=== PATIENT | male | born 1985 | race Caucasian/White ===

== ENCOUNTER 2016-12-19 16:06 | Inpatient (IN) | payer SELFPAY ==
[~2016-12-19] VITALS: Ht 172.7 cm; Wt 64.4 kg
[2016-12-19] VITALS (8 sets, daily range): BP systolic 121–145; BP diastolic 76–95; PULSE 64–98; RESP 14–18; TEMP 97.2–97.8; O2SAT 98–100
[~2016-12-19 16:06] MED LIST: AMOX500T PO; OXYC1SOL5 PO
[2016-12-19 17:00] LABS: AUTOMATED NEUTROPHIL # 11.7 TH/MM3 (1.8-7.7); BASOPHIL # 0.1 TH/MM3 (0-0.2); EOSINOPHIL % 0.2 % (0.0-4.0); HEMATOCRIT 41.1 % (39.0-51.0); LYMPH % 10.8 % (9.0-44.0); LYMPHOCYTE # 1.5 TH/MM3 (1.0-4.8); MEAN CELL VOLUME 79.6 FL (80.0-100.0); MEAN CORPUSCULAR HEMOGLOBIN 27.2 PG (27.0-34.0); MEAN CORPUSCULAR HGB CONC 34.1 % (32.0-36.0); MONO % 5.7 % (0.0-8.0); NEUT % 82.3 % (16.0-70.0); PLATELET COUNT 191 TH/MM3 (150-450); RED BLOOD COUNT 5.16 MIL/MM3 (4.50-5.90); WHITE BLOOD COUNT 14.2 TH/MM3 (4.0-11.0)
[2016-12-19 17:03] LABS: HEMO FLAGS AUTO DIFF
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
[2016-12-19] MEDS ORDERED: MORPHINE SULFATE 4 MG/ML INJ IV PUSH ONE ×2 (17:15→18:30)
[2016-12-19 17:18] LABS: ANION GAP 7 MEQ/L (5-15); BICARBONATE 27.9 MEQ/L (21.0-32.0); CHLORIDE 105 MEQ/L (98-107); GLOMERULAR FILTRATION RATE 148 ML/MIN (>89); POTASSIUM 3.7 MEQ/L (3.5-5.1); SODIUM (NA) 140 MEQ/L (136-145)
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
[2016-12-19 17:22] LABS: BLOOD UREA NITROGEN 10 MG/DL (7-18)
[2016-12-19 17:43] LABS: PLATELET ESTIMATE SMEAR NORMAL (NORMAL); PLATELET MORPHOLOGY NORMAL (NORMAL); SCAN/DIFF AUTO DIFF CONFIRMED
[2016-12-19] MEDS ORDERED: SODIUM CHLOR 0.9% 1000 ML INJ 1,000 ML IV SCH (18:00)
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
[2016-12-19] MEDS ORDERED: ONDANSETRON HCL 4 MG/2 ML VIAL IVP PRN (20:00)
[2016-12-19] MEDS ORDERED: NALOXONE HCL 0.4 MG/ML AMP IV PRN (20:00)
[2016-12-19] MEDS ORDERED: SODIUM CHLORIDE 0.9% FLUSH 10 ML FLUSH IV FLUSH PRN (20:00)
[2016-12-19] MEDS: SODIUM CHLOR 0.9% 1000 ML INJ 1,000 ML IV SCH (20:11)
[2016-12-19] MEDS: SODIUM CHLORIDE 0.9% FLUSH 10 ML FLUSH IV FLUSH SCH (21:00)
[2016-12-19] MEDS: MORPHINE SULFATE 4 MG/ML INJ IV PUSH PRN (22:21)
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
[2016-12-19] MEDS ORDERED: diphenhydrAMINE HCL 50 MG/ML VIAL IV PUSH ONE (23:00)
[2016-12-20 00:06] LABS: AMPHETAMINE, URINE POS (NEG); BARBITURATES, URINE NEG (NEG); COCAINE, URINE NEG (NEG)
[2016-12-20] MEDS: SODIUM CHLOR 0.9% 1000 ML INJ 1,000 ML IV SCH ×3 (00:08→19:39)
[2016-12-20] MEDS: MORPHINE SULFATE 4 MG/ML INJ IV PUSH PRN ×6 (02:08→19:40)
[2016-12-20] MEDS ORDERED: POVIDONE IODINE 5% (ANTISEPSIS KIT) 4 APPLICATIONS EACH NARE PRN (02:15)
[2016-12-20] MEDS ORDERED: CHLORHEXIDINE GLUCONATE 2 % 1 PACK (2 CLOTHS) TOPICAL PRN (02:15)
[2016-12-20] MEDS ORDERED: LACTATED RINGER'S 1000 ML IV PRN (02:15)
[2016-12-20] MEDS ORDERED: INSULIN HUMAN REGULAR 1,000 UNITS/10 ML VIAL SQ PRN (02:15)
[2016-12-20] MEDS ORDERED: SODIUM CHLORID 0.9% 500 ML IV PRN (02:15)
[2016-12-20 04:20] VITALS: BP 119/85; PULSE 65; RESP 16; TEMP 97; O2SAT 98
[2016-12-20 08:00] VITALS: BP 125/77; PULSE 65; RESP 18; TEMP 96.7; O2SAT 98
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
[2016-12-20] MEDS: SODIUM CHLORIDE 0.9% FLUSH 10 ML FLUSH IV FLUSH SCH ×2 (08:57→19:40)
[2016-12-20] MEDS ORDERED: PNEUMOCOCCAL POLYVALENT INJ 25 MCG/0.5 ML SYR IM ONE (09:00)
[2016-12-20 12:00] VITALS: BP 124/80; PULSE 60; RESP 18; TEMP 97.2; O2SAT 98
[2016-12-20] MEDS ORDERED: ONDANSETRON HCL 4 MG/2 ML VIAL IV PUSH ONE (12:00)
[2016-12-20] MEDS ORDERED: PROPOFOL 200 MG/20 ML AMP IV ONE (12:00)
[2016-12-20] MEDS ORDERED: LIDOCAINE 1%/EPINEPHrine 1:100,000 SOLN 50 ML VIAL ONE (15:00)
[2016-12-20] MEDS ORDERED: LIDOCAINE 2%/EPINEPHrine 1:100,000 30ML MDV ONE (15:01)
[2016-12-20 15:33] VITALS: BP 113/54; PULSE 65; RESP 16; TEMP 95.8; O2SAT 97
[2016-12-20] MEDS ORDERED: ceFAZolin INJ 1,000 MG VIAL ONE (16:23)
[2016-12-20] MEDS ORDERED: DEXAMETHASONE SOD PHOS 4 MG/ML VIAL ONE (16:23)
[2016-12-20] MEDS ORDERED: MIDAZOLAM HCL 2 MG/2 ML VIAL ONE (16:29)
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
--- NOTE | 2016-12-20 18:08 | HHI.PR ---
Subjective Remarks pre op Left mandible fx post op same Procedure ORIF mandible fracture Surgeon Sariah Felton Fluids 1000 cc crystalloid Complication none EBL 25cc Anesthesia GA via NETT To RR with VS stable Objective Vital Signs Date Time Temp Pulse Resp B/P Pulse Ox O2 Delivery O2 Flow Rate FiO2 12/20/16 15:33 95.8 65 16 113/54 97 12/20/16 08:00 96.7 65 18 125/77 98 12/20/16 04:20 97.0 65 16 119/85 98 12/19/16 23:57 66 12/19/16 23:47 97.2 67 16 137/86 100 12/19/16 23:41 69 14 121/76 100 12/19/16 22:22 68 14 134/86 98 Room Air 12/19/16 19:20 64 18 129/87 100 Room Air 12/19/16 18:29 71 18 145/95 100 Room Air 12/19/16 18:28 14 I/O 12/19/16 12/19/16 12/19/16 12/20/16 12/20/16 12/20/16 07:00 15:00 23:00 07:00 15:00 23:00 Intake Total 912 ml 988 ml Output Total 375 ml 1175 ml 600 ml Balance 537 ml -187 ml -600 ml Intake Oral 0 ml IV Total 912 ml 988 ml Output Urine Total 375 ml 1175 ml 600 ml # Bowel Movements 0 Result Diagram: 12/19/16 1642 12/19/16 1642 Spencer Rolle DDS Dec 20, 2016 18:08
[2016-12-20] MEDS ORDERED: *MEPERIDINE 25 MG INJ VIAL PERIprocedural Use ONLY ONE (18:24)
[2016-12-20] MEDS ORDERED: methylPREDNISolone SOD SUCC 125 MG/2 ML VIAL ONE (18:26)
[2016-12-20] MEDS ORDERED: fentaNYL CITRATE 250 MCG/5 ML AMP ONE (18:30)
[2016-12-20] MEDS ORDERED: *HYDROmorphone PF 1 MG VIAL PERIprocedural Use ONLY ONE (18:35)
[2016-12-20] MEDS ORDERED: DO NOT ADM ANY ANTICOAGULANT DRUGS PRN (19:15)
[2016-12-20 19:38] VITALS: PULSE 80
[2016-12-20 20:27] VITALS: BP 144/88; PULSE 84; RESP 16; TEMP 96.2; O2SAT 100
[2016-12-20] MEDS: ACETAMINOPHEN 325MG/HYDROcodone 7.5MG/15ML UDC PO PRN (21:10)
[2016-12-20] MEDS: ceFAZolin 1,000 MG/NS 100 ML IV SCH ×2 (21:11)
[2016-12-20] MEDS: methylPREDNISolone SOD SUCC 125 MG/2 ML VIAL IV SCH (23:57)
[2016-12-21] VITALS (7 sets, daily range): BP systolic 109–131; BP diastolic 61–79; PULSE 70–85; RESP 16–22; TEMP 95.3–97.7; O2SAT 96–99
[2016-12-21] MEDS: MORPHINE SULFATE 4 MG/ML INJ IV PUSH PRN ×6 (02:27→23:27)
[2016-12-21] MEDS: ACETAMINOPHEN 325MG/HYDROcodone 7.5MG/15ML UDC PO PRN ×4 (04:58→22:10)
[2016-12-21] MEDS: methylPREDNISolone SOD SUCC 125 MG/2 ML VIAL IV SCH ×2 (04:58→11:20)
[2016-12-21] MEDS: ceFAZolin 1,000 MG/NS 100 ML IV SCH ×6 (04:58→22:10)
[2016-12-21] MEDS: SODIUM CHLORIDE 0.9% FLUSH 10 ML FLUSH IV FLUSH SCH ×2 (09:38→19:57)
[2016-12-21] MEDS: SODIUM CHLOR 0.9% 1000 ML INJ 1,000 ML IV SCH ×2 (11:47→19:57)
[2016-12-21] MEDS ORDERED: methylPREDNISolone ACETATE 80 MG/ML VIAL IM ONE (13:00)
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
[2016-12-22 00:10] VITALS: BP 112/67; PULSE 84; RESP 20; TEMP 96; O2SAT 96
[2016-12-22] MEDS: ACETAMINOPHEN 325MG/HYDROcodone 7.5MG/15ML UDC PO PRN ×5 (03:00→22:40)
[2016-12-22 04:48] VITALS: BP 106/63; PULSE 57; RESP 18; TEMP 95.4; O2SAT 97
[2016-12-22] MEDS: MORPHINE SULFATE 4 MG/ML INJ IV PUSH PRN ×4 (05:23→20:28)
[2016-12-22] MEDS: ceFAZolin 1,000 MG/NS 100 ML IV SCH ×4 (05:24→14:09)
[2016-12-22 07:32] LABS: AUTOMATED NEUTROPHIL # 20.2 TH/MM3 (1.8-7.7); BASOPHIL # 0.1 TH/MM3 (0-0.2); BASOPHIL % 0.3 % (0.0-2.0); HEMATOCRIT 41.1 % (39.0-51.0); HEMO FLAGS DIFF FINAL; LYMPH % 9.7 % (9.0-44.0); LYMPHOCYTE # 2.3 TH/MM3 (1.0-4.8); MEAN CELL VOLUME 80.8 FL (80.0-100.0); MEAN CORPUSCULAR HEMOGLOBIN 26.7 PG (27.0-34.0); MONO % 5.1 % (0.0-8.0); NEUT % 84.9 % (16.0-70.0); PLATELET COUNT 189 TH/MM3 (150-450); RED BLOOD COUNT 5.08 MIL/MM3 (4.50-5.90); RED CELL DISTRIBUTION WIDTH 14.3 % (11.6-17.2); WHITE BLOOD COUNT 23.8 TH/MM3 (4.0-11.0)
[2016-12-22] MEDS: SODIUM CHLOR 0.9% 1000 ML INJ 1,000 ML IV SCH ×3 (07:47→19:36)
[2016-12-22 07:54] LABS: ALKALINE PHOSPHATASE 67 U/L (45-117); ALT (GPT) 41 U/L (12-78); ANION GAP 7 MEQ/L (5-15); AST (GOT) 15 U/L (15-37); BICARBONATE 30.3 MEQ/L (21.0-32.0); BLOOD UREA NITROGEN 7 MG/DL (7-18); CHLORIDE 101 MEQ/L (98-107); GLOMERULAR FILTRATION RATE 133 ML/MIN (>89); POTASSIUM 4.2 MEQ/L (3.5-5.1); SODIUM (NA) 138 MEQ/L (136-145); TOTAL BILIRUBIN ADULT 0.2 MG/DL (0.2-1.0)
[2016-12-22 08:00] VITALS: BP 108/66; PULSE 74; RESP 16; TEMP 96.7; O2SAT 96
[2016-12-22] MEDS: SODIUM CHLORIDE 0.9% FLUSH 10 ML FLUSH IV FLUSH SCH ×2 (09:38→20:28)
[2016-12-22 11:12] LABS: BACTERIA, URINE RARE /hpf; BLOOD, URINE NEG (NEG); COMMENT (UR) CULT NOT INDICATED; CULTURE IF INDICATED CULT NOT INDICATED; GLUCOSE,URINE NEG (NEG); KETONE, URINE NEG (NEG); NITRITE,URINE NEG (NEG); PH, URINE 7.5 (5.0-8.5); SQUAMOUS EPITHELIAL CELL URINE <1 /hpf (0-5); URINE COLOR LIGHT-YELLOW (YELLW/STRAW)
[2016-12-22 12:00] VITALS: BP 112/64; PULSE 64; RESP 16; TEMP 96.9; O2SAT 97
[2016-12-22 16:00] VITALS: BP 115/69; PULSE 56; RESP 16; TEMP 96.8; O2SAT 96
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
[2016-12-22] MEDS ORDERED: MORPHINE SULFATE 4 MG/ML INJ IV PUSH PRN (18:15)
[2016-12-22] MEDS ORDERED: MAGNESIUM HYDROXIDE SUSP 30 ML CUP PO PRN (18:15)
[2016-12-22] MEDS ORDERED: MAGNESIUM HYDROXIDE SUSP 30 ML CUP PO ONE (18:15)
[2016-12-22] MEDS: DOCUSATE SODIUM 50 MG/SENNA 8.6 MG TAB PO SCH (18:15)
[2016-12-22 19:20] VITALS: BP 119/77; PULSE 70; RESP 19; TEMP 95.4; O2SAT 100
[2016-12-22] MEDS: CLINDAMYCIN INJ 600 MG in SODIUM CHLORIDE 0.9% INJ 100 ML IV SCH (20:22)
[2016-12-23 00:12] VITALS: BP 131/72; PULSE 71; RESP 19; TEMP 96.4; O2SAT 99
[2016-12-23] MEDS: MORPHINE SULFATE 4 MG/ML INJ IV PUSH PRN ×2 (00:26→03:45)
[2016-12-23] MEDS: ACETAMINOPHEN 325MG/HYDROcodone 7.5MG/15ML UDC PO PRN ×3 (02:29→11:21)
[2016-12-23 03:21] VITALS: BP 121/73; PULSE 71; RESP 18; TEMP 97.2; O2SAT 99
[2016-12-23] MEDS: CLINDAMYCIN INJ 600 MG in SODIUM CHLORIDE 0.9% INJ 100 ML IV SCH ×2 (03:44→11:18)
[2016-12-23 08:00] VITALS: BP 121/67; PULSE 70; RESP 17; TEMP 96; O2SAT 98
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
[2016-12-23] MEDS: DOCUSATE SODIUM 50 MG/SENNA 8.6 MG TAB PO SCH (11:20)
[2016-12-23] MEDS: SODIUM CHLORIDE 0.9% FLUSH 10 ML FLUSH IV FLUSH SCH (11:20)
[2016-12-23] MEDS ORDERED: HYDR-2376 PO (12:07)
[2016-12-23] MEDS ORDERED: CLIN1CAP6 PO (12:07)
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
== END 2016-12-23 14:37 | disposition home or self-care (01) | DRG 132 ==
LOC: NEPC 16:06 → NEDA 19:39 → OBSVTOIN 19:39 → INTOOBSV 19:39 → N06B 23:56
PROVIDERS: ADMIT Hospitalist; ATTEND Hospitalist
PROC: 0NSV04Z Reposition Left Mandible with Internal Fixation Device, Open Approach (ICD-10-PCS; principal; 2016-12-20 16:40)
DX: S02.652A Fracture of angle of left mandible, initial encounter for closed fracture (principal); D72.823 Leukemoid reaction; K59.00 Constipation, unspecified; J32.9 Chronic sinusitis, unspecified; F17.210 Nicotine dependence, cigarettes, uncomplicated; Y04.0XXA Assault by unarmed brawl or fight, initial encounter
CPT/HCPCS: 70450; 70486; 72125; 80048; 80053; 80307; 81001; 85025; 96361; 96374; 96376; C1713; J0690; J1040; J1100; J1170; J1200; J2175; J2250; J2270; J2405; J2930; J3010; J7030

== ENCOUNTER 2017-01-03 03:42 | Inpatient (IN) | payer SELFPAY ==
[2017-01-03] VITALS (7 sets, daily range): BP systolic 98–140; BP diastolic 62–89; PULSE 65–98; RESP 14–18; TEMP 96.6–98.2; O2SAT 97–100
[~2017-01-03] VITALS: Ht 172.7 cm; Wt 64.9 kg
[~2017-01-03 03:42] MED LIST changes: -AMOX500T PO; +CLIN1CAP6 PO; +HYDR-2376 PO; -OXYC1SOL5 PO
[2017-01-03] MEDS ORDERED: AMPICILLIN-SULBACTAM INJ 3 GM in SODIUM CHLORIDE 0.9% INJ 100 ML IV ONE (04:15)
[2017-01-03] MEDS ORDERED: MORPHINE SULFATE 4 MG/ML INJ IV PUSH ONE (04:15)
[2017-01-03] MEDS ORDERED: ONDANSETRON HCL 4 MG/2 ML VIAL IV PUSH ONE (04:15)
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
[2017-01-03] MEDS: SODIUM CHLOR 0.9% 1000 ML INJ 1,000 ML IV SCH ×3 (04:22→21:32)
[2017-01-03 04:35] LABS: APTT (PATIENT) 32.3 SEC (24.3-30.1)
[2017-01-03 04:42] LABS: BICARBONATE 28.6 MEQ/L (21.0-32.0)
[2017-01-03 04:57] LABS: AUTOMATED NEUTROPHIL # 14.4 TH/MM3 (1.8-7.7); BASOPHIL # 0.1 TH/MM3 (0-0.2); BASOPHIL % 0.3 % (0.0-2.0); EOSINOPHIL % 0.1 % (0.0-4.0); HEMATOCRIT 42.5 % (39.0-51.0); HEMO FLAGS DIFF FINAL; LYMPH % 10.1 % (9.0-44.0); LYMPHOCYTE # 1.7 TH/MM3 (1.0-4.8); MEAN CELL VOLUME 81.2 FL (80.0-100.0); MEAN CORPUSCULAR HEMOGLOBIN 26.4 PG (27.0-34.0); MEAN CORPUSCULAR HGB CONC 32.5 % (32.0-36.0); MONO % 5.3 % (0.0-8.0); NEUT % 84.2 % (16.0-70.0); PLATELET COUNT 248 TH/MM3 (150-450); RED BLOOD COUNT 5.23 MIL/MM3 (4.50-5.90); RED CELL DISTRIBUTION WIDTH 14.1 % (11.6-17.2); WHITE BLOOD COUNT 17.1 TH/MM3 (4.0-11.0)
[2017-01-03] MEDS ORDERED: IOHEXOL 350 MG/ML 10 ML VIAL (for RAD DIAG) IV ONE (05:10)
--- NOTE | 2017-01-03 06:02 | RADRPT ---
EXAM DATE/TIME: 01/03/2017 05:07 [facility] COMPARISON: No previous studies available for comparison. INDICATIONS : Left sided jaw pain and swelling. Post op mandible fracture. IV CONTRAST: 66 cc Omnipaque 350 (iohexol) IV RADIATION DOSE: 12.99 CTDIvol (mGy) MEDICAL HISTORY : Left mandible fracture SURGICAL HISTORY : ENCOUNTER: Initial ACUITY: 1 week PAIN SCALE: 9/10 LOCATION: Left mandible TECHNIQUE: Volumetric scanning of the neck was performed. Using automated exposure control and adjustment of th e mA and/or kV according to patient size, radiation dose was kept as low as reasonably achievable to obtain optimal diagnostic quality images. FINDINGS: An orthopedic plate with anchoring screws is seen involving the left aspect of the mandible. Alignmen t of the fracture is seen. Fracture is comminuted in nature with some small intervening bone fragment s. There is overlying soft tissue swelling observed. No fluid collection. 2 enlarged submandibular ly mph nodes on the left noted. These measure 2.5 x 0.8 cm and 2.0 x 1.1 cm. Major vascular structures a re normal. Thyroid gland is unremarkable. CONCLUSION: 1. Left mandibular fracture with orthopedic plate and alignment. 2. Soft tissue swelling and mild lymphadenopathy involving the left cheek. No hematoma or abscess. Troy Gilmore Jr., MD on January 03, 2017 at 5:55 Board Certified Radiologist. This report was verified electronically.
[2017-01-03] MEDS ORDERED: NALOXONE HCL 0.4 MG/ML AMP IV PRN (07:00)
[2017-01-03] MEDS ORDERED: SODIUM CHLORIDE 0.9% FLUSH 10 ML FLUSH IV FLUSH PRN (07:00)
[2017-01-03] MEDS: CLINDAMYCIN INJ 900 MG in SODIUM CHLORIDE 0.9% INJ 100 ML IV SCH ×3 (07:45→21:32)
[2017-01-03] MEDS: SODIUM CHLORIDE 0.9% FLUSH 10 ML FLUSH IV FLUSH SCH ×2 (07:45→21:33)
--- NOTE | 2017-01-03 07:51 | HHI.HP ---
[facility] Primary Care Physician Admission Diagnosis left facial cellulitis Diagnoses: Chief Complaint: Left facial pain and edema Travel History International Travel<30 Days: No Contact w/Intl Traveler <30 Da: No Traveled to Known Affected Are: No History of Present Illness This is a pleasant 31 y/o male who came to ER with swelling and pain on his left facial area, left sided neck and throat admitted to this facility on December 19 and Discharged on December 23 after surgery, The patient had ORIF left mandible on December 20, 2016. Patient was given prescription for clindamycin and hydrocodone. Patient states that he could not afford the antibiotic and did not fill the prescription as directed. Patient states he has increasing pain and swelling left-sided jaw, left side of throat and left-sided neck for the past several days. Patient denies any fever chills. Patient states that he has trouble swallowing. Patient still able to drink fluids. On a scale of 1-10 the pain is a 9. seen in Emergency room, recommended to get activity not to stay in bed all the time to avoid complications. Past Family Social History Past Medical History Status post Left angle mandibular fracture and ORIF Past Surgical History Exploratory laparotomy to remove foreign object ORIF or Left mandibular Angle Fracture. Reported Medications Reported Meds & Active Scripts Active Hydrocodone-Acetaminophen 7.5-300 Mg Tab 1 Tab PO Q4H PRN Allergies: Coded Allergies: No Known Allergies (Verified , 12/19/16) Active Ordered Medications Current Medications Medications (Trade) Dose Ordered Sig/Callie Route Start Time Stop Time Status Last Admin (NS 1000 ml Inj) 1,000 ml @ 125 mls/hr Q8H IV 01/03/17 04:15 01/03/17 04:22 (NS Flush) 2 ml UNSCH PRN IV FLUSH 01/03/17 07:00 (NS Flush) 2 ml BID IV FLUSH 01/03/17 09:00 Naloxone HCl 0.4 mg 0.4 mg UNSCH PRN IV 01/03/17 07:00 (Cleocin Inj/NS Inj) 106 ml @ 212 mls/hr Q6H IV 01/03/17 08:00 (Morphine Inj) 2 mg Q3H PRN IV PUSH 01/03/17 07:00 Family History Mother with Breast cancer Social History Alcohol abuse occasional tobacco dependence one pack per day, Physical Exam Vital Signs Vital Signs Date Time Temp Pulse Resp B/P Pulse Ox O2 Delivery O2 Flow Rate FiO2 01/03/17 07:20 98.0 70 15 116/62 97 Room Air 01/03/17 04:23 91 18 98 01/03/17 03:44 98.2 98 14 140/89 97 Room Air Physical Exam GENERAL:No acute distress SKIN: Focused skin assessment warm/dry. HEAD: Normocephalic. EYES: No scleral icterus. No injection or drainage. NECK: Supple, trachea midline. No JVD or lymphadenopathy. CARDIOVASCULAR: Regular rate and rhythm without murmurs, gallops, or rubs. RESPIRATORY: Breath sounds equal bilaterally. No accessory muscle use. GASTROINTESTINAL: Abdomen soft, non-tender, nondistended. MUSCULOSKELETAL: No cyanosis, or edema. BACK: Nontender without obvious deformity. No CVA tenderness. Patient has soft tissue swelling tenderness left mandible, left somebody will area, left upper back area. Redness noted overlying the skin to the area. Examination of the throat shows soft tissue swelling on the left peritonsillar area. Laboratory Laboratory Tests Test 01/03/17 04:05 White Blood Count 17.1 Red Blood Count 5.23 Hemoglobin 13.8 Hematocrit 42.5 Mean Corpuscular Volume 81.2 Mean Corpuscular Hemoglobin 26.4 Mean Corpuscular Hemoglobin 32.5 Concent Red Cell Distribution Width 14.1 Platelet Count 248 Mean Platelet Volume 8.4 Neutrophils (%) (Auto) 84.2 Lymphocytes (%) (Auto) 10.1 Monocytes (%) (Auto) 5.3 Eosinophils (%) (Auto) 0.1 Basophils (%) (Auto) 0.3 Neutrophils # (Auto) 14.4 Lymphocytes # (Auto) 1.7 Monocytes # (Auto) 0.9 Eosinophils # (Auto) 0.0 Basophils # (Auto) 0.1 CBC Comment DIFF FINAL Differential Comment Prothrombin Time 11.0 Prothromb Time International 1.0 Ratio Activated Partial 32.3 Thromboplast Time Sodium Level 139 Potassium Level 4.0 Chloride Level 102 Carbon Dioxide Level 28.6 Anion Gap 8 Blood Urea Nitrogen 16 Creatinine 0.81 Estimat Glomerular Filtration 110 Rate Random Glucose 164 Calcium Level 9.0 Date/Time Procedure Status Source Growth 01/03/17 04:05 Aerobic Blood Culture Received Blood Peripheral Pending 01/03/17 04:05 Anaerobic Blood Culture Received Blood Peripheral Pending Result Diagram: 01/03/17 0405 01/03/17 0405 Imaging Last Impressions Neck CT 01/03/17 0000 Signed Impressions: Service Date/Time: , January 03, 2017 05:07 - CONCLUSION: 1. Left mandibular fracture with orthopedic plate and alignment. 2. Soft tissue swelling and mild lymphadenopathy involving the left cheek. No hematoma or abscess. Troy Gilmore Jr., MD Assessment and Plan Assessment and Plan 1. Facial Cellulitis with Leukocytosis WBC 17.1, started on Unasyn in ER and then Clindamycin, consulted Orofacial surgeon , continue pain medicine and antibiotics. follow blood cultures 2. Mandibular Fracture status post ORIF. 3. Tobacco dependence strongly recommended to stop smoking. DVT prophylaxis with SCDs. Code Status Full Code Discussed Condition With Patient. Physician Certification 2 Midnight Certification Type: Admission for Inpatient Services Order for Inpatient Services The services are ordered in accordance with Medicare regulations or non- Medicare payer requirements, as applicable. In the case of services not specified as inpatient-only, they are appropriately provided as inpatient services in accordance with the 2-midnight benchmark. Estimated LOS (days): 3 days is the estimated time the patient will need to remain in the hospital, assuming treatment plan goals are met and no additional complications. Post-Hospital Plan: Home Allan Ledezma MD January 03, 2017 07:51
[2017-01-03] MEDS: MORPHINE SULFATE 4 MG/ML INJ IV PUSH PRN ×3 (12:19→21:33)
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
[2017-01-04] VITALS (7 sets, daily range): BP systolic 100–128; BP diastolic 58–88; PULSE 58–95; RESP 16–20; TEMP 96–98.7; O2SAT 95–100
[2017-01-04] MEDS: MORPHINE SULFATE 4 MG/ML INJ IV PUSH PRN ×5 (01:24→20:10)
[2017-01-04] MEDS: CLINDAMYCIN INJ 900 MG in SODIUM CHLORIDE 0.9% INJ 100 ML IV SCH ×4 (02:10→20:06)
[2017-01-04] MEDS: SODIUM CHLOR 0.9% 1000 ML INJ 1,000 ML IV SCH ×2 (02:10→12:15)
[2017-01-04] MEDS: SODIUM CHLORIDE 0.9% FLUSH 10 ML FLUSH IV FLUSH SCH ×2 (08:30→21:00)
--- NOTE | 2017-01-04 09:37 | HHI.PR ---
Subjective Remarks This is a pleasant 31 y/o male who came to ER with swelling and pain on his left facial area, left sided neck and throat admitted to this facility on December 19 and Discharged on December 23 after surgery, The patient had ORIF left mandible on December 20, 2016. Patient was given prescription for clindamycin and hydrocodone. Patient states that he could not afford the antibiotic and did not fill the prescription as directed. Patient states he has increasing pain and swelling left-sided jaw, left side of throat and left-sided neck for the past several days. Patient denies any fever chills. Patient states that he has trouble swallowing. Patient still able to drink fluids. On a scale of 1-10 the pain is a 9. seen in Emergency room, recommended to get activity not to stay in bed all the time to avoid complications. 01/04: Consulted by Orofacial Surgeon Doctor Stan Felton and recommended to continue antibiotics, steroids, warm compresses good oral hygiene and being compliant with medicines no smoking. No nausea, vomit or diarrhea, improving fast Objective Vital Signs Date Time Temp Pulse Resp B/P Pulse Ox O2 Delivery O2 Flow Rate FiO2 01/04/17 04:05 97.0 70 17 100/60 99 01/04/17 00:05 97.1 69 17 105/58 99 01/03/17 20:05 97.6 68 17 98/67 99 01/03/17 19:13 Room Air 01/03/17 16:00 97.8 65 16 104/62 100 01/03/17 12:00 97.4 72 16 112/63 98 I/O 01/03/17 01/03/17 01/03/17 01/04/17 01/04/17 01/04/17 07:00 15:00 23:00 07:00 15:00 23:00 Intake Total 1080 ml 1912 ml 1496 ml Output Total 800 ml 1400 ml 2450 ml Balance 280 ml 512 ml -954 ml Intake Oral 1080 ml 480 ml 480 ml IV Total 1432 ml 1016 ml Output Urine Total 800 ml 1400 ml 2450 ml # Voids 1 # Bowel Movements 0 0 0 Result Diagram: 01/03/17 0405 01/03/17 0405 Imaging Last Impressions Neck CT 01/03/17 0000 Signed Impressions: Service Date/Time: December 05:07 - CONCLUSION: 1. Left mandibular fracture with orthopedic plate and alignment. 2. Soft tissue swelling and mild lymphadenopathy involving the left cheek. No hematoma or abscess. Troy Gilmore Jr., MD Procedures No procedures performed. Other Results Laboratory Tests Test 01/03/17 04:05 White Blood Count 17.1 TH/MM3 Red Blood Count 5.23 MIL/MM3 Hemoglobin 13.8 GM/DL Hematocrit 42.5 % Mean Corpuscular Volume 81.2 FL Mean Corpuscular Hemoglobin 26.4 PG Mean Corpuscular Hemoglobin 32.5 % Concent Red Cell Distribution Width 14.1 % Platelet Count 248 TH/MM3 Mean Platelet Volume 8.4 FL Neutrophils (%) (Auto) 84.2 % Lymphocytes (%) (Auto) 10.1 % Monocytes (%) (Auto) 5.3 % Eosinophils (%) (Auto) 0.1 % Basophils (%) (Auto) 0.3 % Neutrophils # (Auto) 14.4 TH/MM3 Lymphocytes # (Auto) 1.7 TH/MM3 Monocytes # (Auto) 0.9 TH/MM3 Eosinophils # (Auto) 0.0 TH/MM3 Basophils # (Auto) 0.1 TH/MM3 CBC Comment DIFF FINAL Differential Comment Prothrombin Time 11.0 SEC Prothromb Time International 1.0 RATIO Ratio Activated Partial 32.3 SEC Thromboplast Time Sodium Level 139 MEQ/L Potassium Level 4.0 MEQ/L Chloride Level 102 MEQ/L Carbon Dioxide Level 28.6 MEQ/L Anion Gap 8 MEQ/L Blood Urea Nitrogen 16 MG/DL Creatinine 0.81 MG/DL Estimat Glomerular Filtration 110 ML/MIN Rate Random Glucose 164 MG/DL Calcium Level 9.0 MG/DL Objective Remarks GENERAL:No acute distress SKIN: Focused skin assessment warm/dry. HEAD: Normocephalic. EYES: No scleral icterus. No injection or drainage. NECK: Supple, trachea midline. No JVD or lymphadenopathy. CARDIOVASCULAR: Regular rate and rhythm without murmurs, gallops, or rubs. RESPIRATORY: Breath sounds equal bilaterally. No accessory muscle use. GASTROINTESTINAL: Abdomen soft, non-tender, nondistended. MUSCULOSKELETAL: No cyanosis, or edema. BACK: Nontender without obvious deformity. No CVA tenderness. Patient has soft tissue swelling tenderness left mandible,erythema and edema improving fast from yesterday 60% less than yesterday. Medications and IVs Current Medications Medications (Trade) Dose Ordered Sig/Callie Route Start Time Stop Time Status Last Admin (NS 1000 ml Inj) 1,000 ml @ 125 mls/hr Q8H IV 01/03/17 04:15 01/04/17 02:10 (NS Flush) 2 ml UNSCH PRN IV FLUSH 01/03/17 07:00 (NS Flush) 2 ml BID IV FLUSH 01/03/17 09:00 01/04/17 08:30 Naloxone HCl 0.4 mg 0.4 mg UNSCH PRN IV 01/03/17 07:00 (Cleocin Inj/NS Inj) 106 ml @ 212 mls/hr Q6H IV 01/03/17 08:00 01/04/17 08:30 (Morphine Inj) 2 mg Q3H PRN IV PUSH 01/03/17 07:00 01/04/17 05:24 A/P Problem List: (1) Fracture of left mandibular angle ICD Code: S02.652A (2) Facial cellulitis ICD Code: L03.211 Assessment and Plan 1. Facial Cellulitis with Leukocytosis WBC 17.1, started on Unasyn in ER and then Clindamycin, consulted Orofacial surgeon , continue pain medicine and antibiotics. follow blood cultures 2. Mandibular Fracture status post ORIF on last admission. 3. Tobacco dependence strongly recommended to stop smoking. DVT prophylaxis with SCDs. Code Status Full Code Discussed Condition With Patient. Discharge Planning Expected in one to two days. Allan Ledezma MD January 04, 2017 09:37
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
[2017-01-05 00:10] VITALS: BP 120/75; PULSE 73; RESP 17; TEMP 97.1; O2SAT 98
[2017-01-05] MEDS: CLINDAMYCIN INJ 900 MG in SODIUM CHLORIDE 0.9% INJ 100 ML IV SCH ×4 (02:00→19:52)
[2017-01-05] MEDS: MORPHINE SULFATE 4 MG/ML INJ IV PUSH PRN ×6 (03:10→16:37)
[2017-01-05 04:10] VITALS: BP 116/77; PULSE 74; RESP 17; TEMP 97.4; O2SAT 98
[2017-01-05 08:00] VITALS: BP 114/69; PULSE 60; RESP 18; TEMP 95.9; O2SAT 100
[2017-01-05] MEDS: SODIUM CHLORIDE 0.9% FLUSH 10 ML FLUSH IV FLUSH SCH ×2 (10:39→19:50)
[2017-01-05 12:00] VITALS: BP 120/68; PULSE 72; RESP 19; TEMP 96.1; O2SAT 96
[2017-01-05] MEDS: SODIUM CHLOR 0.9% 1000 ML INJ 1,000 ML IV SCH (12:15)
[2017-01-05 16:00] VITALS: BP 113/80; PULSE 65; RESP 19; TEMP 96.1; O2SAT 100
--- NOTE | 2017-01-05 16:14 | HHI.PR ---
Subjective Remarks This is a pleasant 31 y/o male who came to ER with swelling and pain on his left facial area, left sided neck and throat admitted to this facility on December 19 and Discharged on December 23 after surgery, The patient had ORIF left mandible on December 20, 2016. Patient was given prescription for clindamycin and hydrocodone. Patient states that he could not afford the antibiotic and did not fill the prescription as directed. Patient states he has increasing pain and swelling left-sided jaw, left side of throat and left-sided neck for the past several days. Patient denies any fever chills. Patient states that he has trouble swallowing. Patient still able to drink fluids. On a scale of 1-10 the pain is a 9. seen in Emergency room, recommended to get activity not to stay in bed all the time to avoid complications. 01/05: Seen in his bedroom, improving condition, he will be discharged on Saturday01/07/17 and go to [facility], no Nausea, vomit or diarrhea, improving condition, encourage activity, IV medicines to By mouth except antibiotics. Objective Vital Signs Date Time Temp Pulse Resp B/P Pulse Ox O2 Delivery O2 Flow Rate FiO2 01/05/17 12:00 96.1 72 19 120/68 96 01/05/17 08:00 95.9 60 18 114/69 100 01/05/17 04:10 97.4 74 17 116/77 98 01/05/17 00:10 97.1 73 17 120/75 98 01/04/17 20:00 96.5 71 20 110/63 100 I/O 01/04/17 01/04/17 01/04/17 01/05/17 01/05/17 01/05/17 06:59 14:59 22:59 06:59 14:59 22:59 Intake Total 1496 ml 700 ml 960 ml 480 ml Output Total 2450 ml 2100 ml 850 ml 2150 ml Balance -954 ml -1400 ml 110 ml -1670 ml Intake Oral 480 ml 700 ml 960 ml 480 ml IV Total 1016 ml Output Urine Total 2450 ml 2100 ml 850 ml 2150 ml # Voids 3 # Bowel Movements 0 0 0 0 Result Diagram: 01/03/17 0405 01/03/17 0405 Imaging Last Impressions Neck CT 01/03/17 0000 Signed Impressions: Service Date/Time: December 05:07 - CONCLUSION: 1. Left mandibular fracture with orthopedic plate and alignment. 2. Soft tissue swelling and mild lymphadenopathy involving the left cheek. No hematoma or abscess. Troy Gilmore Jr., MD Procedures No procedures performed. Other Results Laboratory Tests Test 01/03/17 04:05 White Blood Count 17.1 TH/MM3 Red Blood Count 5.23 MIL/MM3 Hemoglobin 13.8 GM/DL Hematocrit 42.5 % Mean Corpuscular Volume 81.2 FL Mean Corpuscular Hemoglobin 26.4 PG Mean Corpuscular Hemoglobin 32.5 % Concent Red Cell Distribution Width 14.1 % Platelet Count 248 TH/MM3 Mean Platelet Volume 8.4 FL Neutrophils (%) (Auto) 84.2 % Lymphocytes (%) (Auto) 10.1 % Monocytes (%) (Auto) 5.3 % Eosinophils (%) (Auto) 0.1 % Basophils (%) (Auto) 0.3 % Neutrophils # (Auto) 14.4 TH/MM3 Lymphocytes # (Auto) 1.7 TH/MM3 Monocytes # (Auto) 0.9 TH/MM3 Eosinophils # (Auto) 0.0 TH/MM3 Basophils # (Auto) 0.1 TH/MM3 CBC Comment DIFF FINAL Differential Comment Prothrombin Time 11.0 SEC Prothromb Time International 1.0 RATIO Ratio Activated Partial 32.3 SEC Thromboplast Time Sodium Level 139 MEQ/L Potassium Level 4.0 MEQ/L Chloride Level 102 MEQ/L Carbon Dioxide Level 28.6 MEQ/L Anion Gap 8 MEQ/L Blood Urea Nitrogen 16 MG/DL Creatinine 0.81 MG/DL Estimat Glomerular Filtration 110 ML/MIN Rate Random Glucose 164 MG/DL Calcium Level 9.0 MG/DL Objective Remarks GENERAL:No acute distress SKIN: Focused skin assessment warm/dry. HEAD: Normocephalic. EYES: No scleral icterus. No injection or drainage. NECK: Supple, trachea midline. No JVD or lymphadenopathy. CARDIOVASCULAR: Regular rate and rhythm without murmurs, gallops, or rubs. RESPIRATORY: Breath sounds equal bilaterally. No accessory muscle use. GASTROINTESTINAL: Abdomen soft, non-tender, nondistended. MUSCULOSKELETAL: No cyanosis, or edema. BACK: Nontender without obvious deformity. No CVA tenderness. Patient has soft tissue swelling tenderness left mandible,erythema and edema improving Medications and IVs Current Medications Medications (Trade) Dose Ordered Sig/Callie Route Start Time Stop Time Status Last Admin (NS 1000 ml Inj) 1,000 ml @ 125 mls/hr Q8H IV 01/03/17 04:15 01/04/17 12:15 (NS Flush) 2 ml UNSCH PRN IV FLUSH 01/03/17 07:00 (NS Flush) 2 ml BID IV FLUSH 01/03/17 09:00 01/05/17 10:39 Naloxone HCl 0.4 mg 0.4 mg UNSCH PRN IV 01/03/17 07:00 (Cleocin Inj/NS Inj) 106 ml @ 212 mls/hr Q6H IV 01/03/17 08:00 01/05/17 13:13 (Morphine Inj) 2 mg Q3H PRN IV PUSH 01/03/17 07:00 01/05/17 13:26 A/P Problem List: (1) Fracture of left mandibular angle ICD Code: S02.652A (2) Facial cellulitis ICD Code: L03.211 Assessment and Plan 1. Facial Cellulitis with Leukocytosis WBC 17.1, started on Unasyn in ER and then Clindamycin, consulted Orofacial surgeon , continue pain medicine and antibiotics. follow blood cultures negative follow leukocytosis. 2. Mandibular Fracture status post ORIF on last admission. 3. Tobacco dependence strongly recommended to stop smoking. DVT prophylaxis with SCDs. Code Status Full Code Discussed Condition With Patient. Discharge Planning as per Oral and facial surgery for discharge 01/07/17 Allan Ledezma MD January 05, 2017 16:14
[2017-01-05] MEDS: ACETAMINOPHEN/HYDROcodone 325 MG/7.5 MG TAB PO PRN (19:49)
[2017-01-05 20:12] VITALS: BP 145/81; PULSE 78; RESP 18; TEMP 97.7; O2SAT 98
[2017-01-05 21:20] LABS: AMPHETAMINE, URINE NEG (NEG); BARBITURATES, URINE NEG (NEG); COCAINE, URINE NEG (NEG)
[2017-01-05] MEDS ORDERED: TEMAZEPAM 7.5 MG CAP PO ONE (21:30)
[2017-01-06] VITALS: BP 121/88; PULSE 66; RESP 16; TEMP 98.2; O2SAT 99
[2017-01-06] MEDS: ACETAMINOPHEN/HYDROcodone 325 MG/7.5 MG TAB PO PRN ×5 (00:26→19:57)
[2017-01-06] MEDS: CLINDAMYCIN INJ 900 MG in SODIUM CHLORIDE 0.9% INJ 100 ML IV SCH ×4 (01:26→19:23)
[2017-01-06 07:10] LABS: BASOPHIL # 0.1 TH/MM3 (0-0.2); BASOPHIL % 0.8 % (0.0-2.0); EOSINOPHIL # 0.1 TH/MM3 (0-0.4); EOSINOPHIL % 1.5 % (0.0-4.0); HEMO FLAGS DIFF FINAL; LYMPHOCYTE # 2.5 TH/MM3 (1.0-4.8); MEAN CORPUSCULAR HGB CONC 33.3 % (32.0-36.0); MONO % 8.9 % (0.0-8.0); NEUT % 62.8 % (16.0-70.0); PLATELET COUNT 286 TH/MM3 (150-450); RED BLOOD COUNT 5.31 MIL/MM3 (4.50-5.90); RED CELL DISTRIBUTION WIDTH 14.1 % (11.6-17.2); WHITE BLOOD COUNT 9.5 TH/MM3 (4.0-11.0)
[2017-01-06 08:00] VITALS: BP 133/71; PULSE 73; RESP 18; TEMP 95.7; O2SAT 99
--- NOTE | 2017-01-06 10:22 | HHI.PR ---
Subjective Remarks This is a pleasant 31 y/o male who came to ER with swelling and pain on his left facial area, left sided neck and throat admitted to this facility on December 19 and Discharged on December 23 after surgery, The patient had ORIF left mandible on December 20, 2016. Patient was given prescription for clindamycin and hydrocodone. Patient states that he could not afford the antibiotic and did not fill the prescription as directed. Patient states he has increasing pain and swelling left-sided jaw, left side of throat and left-sided neck for the past several days. Patient denies any fever chills. Patient states that he has trouble swallowing. Patient still able to drink fluids. On a scale of 1-10 the pain is a 9. seen in Emergency room, recommended to get activity not to stay in bed all the time to avoid complications. 01/06: Seen in his bedroom, improving condition, he will be discharged on Saturday01/07/17 and go to [facility], no Nausea, vomit or diarrhea, improving condition, continue activity, seen with nurse Miss Vieyra in the room, he wants to increase Pain medicine, will start NSAIDs Objective Vital Signs Date Time Temp Pulse Resp B/P Pulse Ox O2 Delivery O2 Flow Rate FiO2 01/06/17 08:00 95.7 73 18 133/71 99 01/06/17 00:00 98.2 66 16 121/88 99 01/05/17 20:12 97.7 78 18 145/81 98 01/05/17 16:00 96.1 65 19 113/80 100 01/05/17 12:00 96.1 72 19 120/68 96 I/O 01/05/17 01/05/17 01/05/17 01/06/17 01/06/17 01/06/17 07:00 15:00 23:00 07:00 15:00 23:00 Intake Total 480 ml 2640 ml 960 ml 720 ml Output Total 2150 ml 2400 ml 1400 ml 1000 ml Balance -1670 ml 240 ml -440 ml -280 ml Intake Oral 480 ml 2640 ml 960 ml 720 ml Output Urine Total 2150 ml 2400 ml 1400 ml 1000 ml # Voids 6 5 # Bowel Movements 0 2 Result Diagram: 01/06/17 0620 01/03/17 0405 Imaging Last Impressions Neck CT 01/03/17 0000 Signed Impressions: Service Date/Time: December 05:07 - CONCLUSION: 1. Left mandibular fracture with orthopedic plate and alignment. 2. Soft tissue swelling and mild lymphadenopathy involving the left cheek. No hematoma or abscess. Troy Gilmore Jr., MD Procedures No procedures performed. Other Results Laboratory Tests Test 01/03/17 01/05/17 01/06/17 04:05 20:50 06:20 Prothrombin Time 11.0 SEC Prothromb Time International 1.0 RATIO Ratio Activated Partial 32.3 SEC Thromboplast Time Sodium Level 139 MEQ/L Potassium Level 4.0 MEQ/L Chloride Level 102 MEQ/L Carbon Dioxide Level 28.6 MEQ/L Anion Gap 8 MEQ/L Blood Urea Nitrogen 16 MG/DL Creatinine 0.81 MG/DL Estimat Glomerular Filtration 110 ML/MIN Rate Random Glucose 164 MG/DL Calcium Level 9.0 MG/DL Urine Opiates Screen NEG Urine Barbiturates Screen NEG Urine Amphetamines Screen NEG Urine Benzodiazepines Screen NEG Urine Cocaine Screen NEG Urine Cannabinoids Screen NEG White Blood Count 9.5 TH/MM3 Red Blood Count 5.31 MIL/MM3 Hemoglobin 14.3 GM/DL Hematocrit 43.0 % Mean Corpuscular Volume 81.0 FL Mean Corpuscular Hemoglobin 27.0 PG Mean Corpuscular Hemoglobin 33.3 % Concent Red Cell Distribution Width 14.1 % Platelet Count 286 TH/MM3 Mean Platelet Volume 8.4 FL Neutrophils (%) (Auto) 62.8 % Lymphocytes (%) (Auto) 26.0 % Monocytes (%) (Auto) 8.9 % Eosinophils (%) (Auto) 1.5 % Basophils (%) (Auto) 0.8 % Neutrophils # (Auto) 6.0 TH/MM3 Lymphocytes # (Auto) 2.5 TH/MM3 Monocytes # (Auto) 0.8 TH/MM3 Eosinophils # (Auto) 0.1 TH/MM3 Basophils # (Auto) 0.1 TH/MM3 CBC Comment DIFF FINAL Differential Comment Objective Remarks GENERAL:No acute distress SKIN: Focused skin assessment warm/dry. HEAD: Normocephalic. EYES: No scleral icterus. No injection or drainage. NECK: Supple, trachea midline. No JVD or lymphadenopathy. CARDIOVASCULAR: Regular rate and rhythm without murmurs, gallops, or rubs. RESPIRATORY: Breath sounds equal bilaterally. No accessory muscle use. GASTROINTESTINAL: Abdomen soft, non-tender, nondistended. MUSCULOSKELETAL: No cyanosis, or edema. BACK: Nontender without obvious deformity. No CVA tenderness. Patient has soft tissue swelling tenderness left mandible,erythema and edema improving Medications and IVs Current Medications Medications (Trade) Dose Ordered Sig/Callie Route Start Time Stop Time Status Last Admin (NS Flush) 2 ml UNSCH PRN IV FLUSH 01/03/17 07:00 (NS Flush) 2 ml BID IV FLUSH 01/03/17 09:00 01/05/17 19:50 Naloxone HCl 0.4 mg 0.4 mg UNSCH PRN IV 01/03/17 07:00 (Cleocin Inj/NS Inj) 106 ml @ 212 mls/hr Q6H IV 01/03/17 08:00 01/06/17 08:27 ([place] 7.5-325 Mg) 1 tab Q4H PRN PO 01/05/17 16:45 01/06/17 07:20 A/P Problem List: (1) Fracture of left mandibular angle ICD Code: S02.652A (2) Facial cellulitis ICD Code: L03.211 Assessment and Plan 1. Facial Cellulitis with Leukocytosis WBC 17.1, started on Unasyn in ER and then Clindamycin, consulted Orofacial surgeon , continue pain medicine and antibiotics. blood cultures negative in 48 hours, Leukocytosis improved. 2. Mandibular Fracture status post ORIF on last admission. 3. Tobacco dependence strongly recommended to stop smoking. DVT prophylaxis with SCDs. Code Status Full Code Discussed Condition With Patient and nurse Miss Vieyra in the room. Discharge Planning as per Oral and facial surgery for discharge 01/07/17 Allan Ledezma MD January 06, 2017 10:22
[2017-01-06 12:00] VITALS: BP 125/78; PULSE 80; RESP 18; TEMP 95.5; O2SAT 99
[2017-01-06] MEDS: IBUPROFEN 600 MG TAB PO SCH ×2 (12:00→19:29)
[2017-01-06] MEDS ORDERED: IBUPROFEN 600 MG TAB PO SCH (14:00)
[2017-01-06 16:00] VITALS: BP 111/69; PULSE 92; RESP 18; TEMP 97.8; O2SAT 99
[2017-01-06] MEDS: SODIUM CHLORIDE 0.9% FLUSH 10 ML FLUSH IV FLUSH SCH (19:23)
[2017-01-06 20:10] VITALS: BP 134/86; PULSE 75; RESP 17; TEMP 97.5; O2SAT 99
[2017-01-06] MEDS ORDERED: TEMAZEPAM 7.5 MG CAP PO PRN (21:00)
[2017-01-07 00:15] VITALS: BP 130/87; PULSE 75; RESP 17; TEMP 98.4; O2SAT 99
[2017-01-07] MEDS: ACETAMINOPHEN/HYDROcodone 325 MG/7.5 MG TAB PO PRN ×3 (01:16→10:16)
[2017-01-07] MEDS: CLINDAMYCIN INJ 900 MG in SODIUM CHLORIDE 0.9% INJ 100 ML IV SCH ×2 (01:16→08:19)
[2017-01-07] MEDS: IBUPROFEN 600 MG TAB PO SCH (03:28)
[2017-01-07 04:10] VITALS: BP 100/73; PULSE 76; RESP 17; TEMP 96.8; O2SAT 100
[2017-01-07 08:00] VITALS: BP 114/76; PULSE 75; RESP 19; TEMP 98.1; O2SAT 98
[2017-01-07] MEDS: SODIUM CHLORIDE 0.9% FLUSH 10 ML FLUSH IV FLUSH SCH (08:19)
--- NOTE | 2017-01-07 09:03 | HHI.PR ---
Subjective Remarks This is a pleasant 31 y/o male who came to ER with swelling and pain on his left facial area, left sided neck and throat admitted to this facility on December 19 and Discharged on December 23 after surgery, The patient had ORIF left mandible on December 20, 2016. Patient was given prescription for clindamycin and hydrocodone. Patient states that he could not afford the antibiotic and did not fill the prescription as directed. Patient states he has increasing pain and swelling left-sided jaw, left side of throat and left-sided neck for the past several days. Patient denies any fever chills. Patient states that he has trouble swallowing. Patient still able to drink fluids. On a scale of 1-10 the pain is a 9. seen in Emergency room, recommended to get activity not to stay in bed all the time to avoid complications. 01/06: Seen in his bedroom, improving condition, he will be discharged on Saturday01/07/17 and go to [facility], no Adjusted pain medicines. 01/07: Stable in his bedroom, no nausea, vomit or diarrhea, okay to discharge as per Maxillofacial surgery on Amoxicillin and follow in one week. Objective Vital Signs Date Time Temp Pulse Resp B/P Pulse Ox O2 Delivery O2 Flow Rate FiO2 01/07/17 08:00 98.1 75 19 114/76 98 01/07/17 04:10 96.8 76 17 100/73 100 01/07/17 00:15 98.4 75 17 130/87 99 01/06/17 20:10 97.5 75 17 134/86 99 01/06/17 20:00 99 Room Air 01/06/17 16:00 97.8 92 18 111/69 99 01/06/17 12:00 95.5 80 18 125/78 99 I/O 01/06/17 01/06/17 01/06/17 01/07/17 01/07/17 01/07/17 07:00 15:00 23:00 07:00 15:00 23:00 Intake Total 720 ml 960 ml 360 ml 480 ml Output Total 1000 ml 150 ml 450 ml Balance -280 ml 810 ml -90 ml 480 ml Intake Oral 720 ml 960 ml 360 ml 480 ml Output Urine Total 1000 ml 150 ml 450 ml # Voids 5 2 # Bowel Movements 3 0 0 Result Diagram: 01/06/17 0620 01/03/17 0405 Imaging Last Impressions Neck CT 01/03/17 0000 Signed Impressions: Service Date/Time: December 05:07 - CONCLUSION: 1. Left mandibular fracture with orthopedic plate and alignment. 2. Soft tissue swelling and mild lymphadenopathy involving the left cheek. No hematoma or abscess. Troy Gilmore Jr., MD Procedures No procedures performed. Other Results Laboratory Tests Test 01/03/17 01/05/17 01/06/17 04:05 20:50 06:20 Prothrombin Time 11.0 SEC Prothromb Time International 1.0 RATIO Ratio Activated Partial 32.3 SEC Thromboplast Time Sodium Level 139 MEQ/L Potassium Level 4.0 MEQ/L Chloride Level 102 MEQ/L Carbon Dioxide Level 28.6 MEQ/L Anion Gap 8 MEQ/L Blood Urea Nitrogen 16 MG/DL Creatinine 0.81 MG/DL Estimat Glomerular Filtration 110 ML/MIN Rate Random Glucose 164 MG/DL Calcium Level 9.0 MG/DL Urine Opiates Screen NEG Urine Barbiturates Screen NEG Urine Amphetamines Screen NEG Urine Benzodiazepines Screen NEG Urine Cocaine Screen NEG Urine Cannabinoids Screen NEG White Blood Count 9.5 TH/MM3 Red Blood Count 5.31 MIL/MM3 Hemoglobin 14.3 GM/DL Hematocrit 43.0 % Mean Corpuscular Volume 81.0 FL Mean Corpuscular Hemoglobin 27.0 PG Mean Corpuscular Hemoglobin 33.3 % Concent Red Cell Distribution Width 14.1 % Platelet Count 286 TH/MM3 Mean Platelet Volume 8.4 FL Neutrophils (%) (Auto) 62.8 % Lymphocytes (%) (Auto) 26.0 % Monocytes (%) (Auto) 8.9 % Eosinophils (%) (Auto) 1.5 % Basophils (%) (Auto) 0.8 % Neutrophils # (Auto) 6.0 TH/MM3 Lymphocytes # (Auto) 2.5 TH/MM3 Monocytes # (Auto) 0.8 TH/MM3 Eosinophils # (Auto) 0.1 TH/MM3 Basophils # (Auto) 0.1 TH/MM3 CBC Comment DIFF FINAL Differential Comment Objective Remarks GENERAL:No acute distress SKIN: Focused skin assessment warm/dry. HEAD: Normocephalic. EYES: No scleral icterus. No injection or drainage. NECK: Supple, trachea midline. No JVD or lymphadenopathy. CARDIOVASCULAR: Regular rate and rhythm without murmurs, gallops, or rubs. RESPIRATORY: Breath sounds equal bilaterally. No accessory muscle use. GASTROINTESTINAL: Abdomen soft, non-tender, nondistended. MUSCULOSKELETAL: No cyanosis, or edema. BACK: Nontender without obvious deformity. No CVA tenderness. soft tissue swelling on his left mandibular area but improved 100%, no erythema. Medications and IVs Current Medications Medications (Trade) Dose Ordered Sig/Callie Route Start Time Stop Time Status Last Admin (NS Flush) 2 ml UNSCH PRN IV FLUSH 01/03/17 07:00 (NS Flush) 2 ml BID IV FLUSH 01/03/17 09:00 01/07/17 08:19 Naloxone HCl 0.4 mg 0.4 mg UNSCH PRN IV 01/03/17 07:00 (Cleocin Inj/NS Inj) 106 ml @ 212 mls/hr Q6H IV 01/03/17 08:00 01/07/17 08:19 ([place] 7.5-325 Mg) 1 tab Q4H PRN PO 01/05/17 16:45 01/07/17 05:49 (Motrin) 600 mg Q8H PO 01/06/17 12:00 01/07/17 03:28 (Restoril) 7.5 mg HS PRN PO 01/06/17 21:00 01/07/17 01:16 A/P Problem List: (1) Fracture of left mandibular angle ICD Code: S02.652A (2) Facial cellulitis ICD Code: L03.211 Assessment and Plan 1. Facial Cellulitis with Leukocytosis WBC 17.1, started on Unasyn in ER and then Clindamycin, Leukocytosis improved, as per Maxillofacial surgery okay to discharge on by mouth Amoxicillin and follow in his office in one week. 2. Mandibular Fracture status post ORIF on last admission. 3. Tobacco dependence strongly recommended to stop smoking. 4. Poor Oral hygiene 5. Medical non compliance. DVT prophylaxis with SCDs. Code Status Full Code Discussed Condition With Patient and nurse Mr. Wilson all questions answered to the best of my abilities. Discharge Planning Discharge Home Allan Ledezma MD January 07, 2017 09:03
[2017-01-07] MEDS ORDERED: AMOX500C PO (10:12)
[2017-01-07] MEDS ORDERED: HYDR-3580 PO (10:12)
[2017-01-07] MEDS ORDERED: IBUP-232 PO (10:12)
--- NOTE | 2017-01-07 10:20 | HHI.DS ---
Discharge Summary Admission Date January 03, 2017 at 07:01 Discharge Date: January 07, 2017 Admitting Diagnosis left facial cellulitis (1) Fracture of left mandibular angle ICD Code: S02.652A Diagnosis: Principal (2) Facial cellulitis ICD Code: L03.211 Diagnosis: Principal Procedures No procedures performed. Brief History - From Admission This is a pleasant 31 y/o male who came to ER with swelling and pain on his left facial area, left sided neck and throat admitted to this facility on December 19 and Discharged on December 23 after surgery, The patient had ORIF left mandible on December 20, 2016. Patient was given prescription for clindamycin and hydrocodone. Patient states that he could not afford the antibiotic and did not fill the prescription as directed. Patient states he has increasing pain and swelling left-sided jaw, left side of throat and left-sided neck for the past several days. Patient denies any fever chills. Patient states that he has trouble swallowing. Patient still able to drink fluids. On a scale of 1-10 the pain is a 9. seen in Emergency room, recommended to get activity not to stay in bed all the time to avoid complications. CBC/BMP: 01/06/17 0620 01/03/17 0405 Significant Findings Laboratory Tests Test 01/06/17 06:20 Monocytes (%) (Auto) 8.9 % (0.0-8.0) Imaging Last Impressions Neck CT 01/03/17 0000 Signed Impressions: Service Date/Time: December 05:07 - CONCLUSION: 1. Left mandibular fracture with orthopedic plate and alignment. 2. Soft tissue swelling and mild lymphadenopathy involving the left cheek. No hematoma or abscess. Troy Gilmore Jr., MD PE at Discharge GENERAL:No acute distress SKIN: Focused skin assessment warm/dry. HEAD: Normocephalic. EYES: No scleral icterus. No injection or drainage. NECK: Supple, trachea midline. No JVD or lymphadenopathy. CARDIOVASCULAR: Regular rate and rhythm without murmurs, gallops, or rubs. RESPIRATORY: Breath sounds equal bilaterally. No accessory muscle use. GASTROINTESTINAL: Abdomen soft, non-tender, nondistended. MUSCULOSKELETAL: No cyanosis, or edema. BACK: Nontender without obvious deformity. No CVA tenderness. soft tissue swelling on his left mandibular area but improved 80%, no erythema. Hospital Course This is a pleasant 31 y/o male who came to ER with swelling and pain on his left facial area, left sided neck and throat admitted to this facility on December 19 and Discharged on December 23 after surgery, The patient had ORIF left mandible on December 20, 2016. Patient was given prescription for clindamycin and hydrocodone. Patient states that he could not afford the antibiotic and did not fill the prescription as directed. Patient states he has increasing pain and swelling left-sided jaw, left side of throat and left-sided neck for the past several days. Patient denies any fever chills. Patient states that he has trouble swallowing. Patient still able to drink fluids. On a scale of 1-10 the pain is a 9. seen in Emergency room, recommended to get activity not to stay in bed all the time to avoid complications. 01/06: Seen in his bedroom, improving condition, he will be discharged on Saturday01/07/17 and go to [facility], no Adjusted pain medicines. 01/07: Stable in his bedroom, no nausea, vomit or diarrhea, okay to discharge as per Maxillofacial surgery on Amoxicillin and follow in one week. Assessment and Plan 1. Facial Cellulitis with Leukocytosis WBC 17.1, started on Unasyn in ER and then Clindamycin, Leukocytosis improved, as per Maxillofacial surgery okay to discharge on by mouth Amoxicillin and follow in his office in one week. 2. Mandibular Fracture status post ORIF on last admission. 3. Tobacco dependence strongly recommended to stop smoking. 4. Poor Oral hygiene 5. Medical non compliance. DVT prophylaxis with SCDs. Code Status Full Code Discussed Condition With Patient and nurse Mr. Wilson all questions answered to the best of my abilities. Discharge Planning Discharge Home Pt Condition on Discharge: Good Discharge Disposition: Discharge Home Discharge Time: > 30 minutes Discharge Instructions DIET: Follow Instructions for: As Tolerated, No Restrictions Activities you can perform: Regular-No Restrictions Allan Ledezma MD January 07, 2017 10:19
== END 2017-01-07 11:28 | disposition home or self-care (01) | DRG 603 ==
LOC: NEPE 03:42 → NEDA 07:01 → N06B 09:27
PROVIDERS: ADMIT Internal Medicine; ATTEND Internal Medicine
DX: L03.211 Cellulitis of face (principal); Z91.19 Patient's noncompliance with other medical treatment and regimen; F17.210 Nicotine dependence, cigarettes, uncomplicated; S02.652D Fracture of angle of left mandible, subsequent encounter for fracture with routine healing; Z98.890 Other specified postprocedural states; K02.9 Dental caries, unspecified
CPT/HCPCS: 70491; 80048; 80307; 85025; 85610; 85730; 87040; 96365; 96366; 96375; J0295; J2270; J2405; J7030; Q9967

== ENCOUNTER 2017-07-07 17:29 | Observation (INO) | payer SELFPAY ==
[~2017-07-07] VITALS: Ht 170.2 cm; Wt 65.0 kg
[~2017-07-07 17:29] MED LIST changes: +AMOX500C PO; -CLIN1CAP6 PO; -HYDR-2376 PO; +HYDR-3580 PO; +IBUP-232 PO
[2017-07-07 17:37] VITALS: BP 120/55; PULSE 90; RESP 16; TEMP 98.6; O2SAT 96
[2017-07-07 22:27] VITALS: BP 137/65; PULSE 72; RESP 18; TEMP 99.8; O2SAT 98
[2017-07-07] MEDS ORDERED: SODIUM CHLORIDE 0.9% FLUSH 10 ML FLUSH IV FLUSH PRN (22:45)
--- NOTE | 2017-07-07 22:55 | PD ---
HPI Chief Complaint: OD/ Ingestion Time Seen by Provider: 22:39 Travel History International Travel<30 days: No Contact w/Intl Traveler<30days: No Traveled to known affect area: No History of Present Illness HPI 31-year-old male brought in by ambulance after an unintentional heroin overdose. According to the triage note, the patient's girlfriend called EMS, and when they arrived at the scene the patient was 95% on room air, alert, and oriented. He was brought to our emergency department and placed in the ambulance hallway for approximately 5 hours without being seen by a provider before being brought back to an exam room in my pod. He was brought back to an exam room around 10:30 PM and was evaluated by me soon afterwards. Upon my assessment the patient is awake and alert. He is shivering and states that he is feeling chills and feverish. 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 He tells me that he is not suicidal or homicidal, and that he unintentionally injected too much heroin into his left forearm. He denies using any other drugs. No cough. No abdominal pain. No urinary or bowel incontinence or retention. PFSH Past Medical History Arthritis: No Asthma: No Autoimmune Disease: No Blood Disorders: No Anxiety: No Depression: No Heart Rhythm Problems: No Cancer: No Cardiovascular Problems: No High Cholesterol: No Chemotherapy: No Chest Pain: No Congestive Heart Failure: No COPD: No Cerebrovascular Accident: No Diabetes: No Diminished Hearing: No Endocrine: No GERD: No Genitourinary: No Hiatal Hernia: No Immune Disorder: No Kidney Stones: No Musculoskeletal: Yes (Previous mandible surgery) Neurologic: No Psychiatric: No Reproductive: No Respiratory: No Migraines: No Radiation Therapy: No Renal Failure: No Seizures: No Sickle Cell Disease: No Sleep Apnea: No Thyroid Disease: No Ulcer: No Past Surgical History Abdominal Surgery: Yes (EXP LAP TO REMOVE FOREIGN OBJECT) AICD: No Arteriovenous Shunt: No Cardiac Surgery: No Ear Surgery: No Endocrine Surgery: No Eye Surgery: No Genitourinary Surgery: No Gynecologic Surgery: No Insulin Pump: No Joint Replacement: No Oral Surgery: No Pacemaker: No Thoracic Surgery: No Other Surgery: Yes Social History Alcohol Use: Yes (RARE) Tobacco Use: Yes (1 PPD) Substance Use: Yes (IV heroin) Allergies-Medications (Allergen,Severity, Reaction): Coded Allergies: No Known Allergies (Verified , 12/19/16) Reported Meds & Prescriptions Reported Meds & Active Scripts Active No Active Prescriptions or Reported Medications Review of Systems Except as stated in HPI: all other systems reviewed are Neg Physical Exam Narrative GENERAL: Well-developed, well-nourished, awake, alert, shivering SKIN: Focused skin assessment warm/dry. Track shafer on left forearm. No signs of cellulitis or abscess. HEAD: Atraumatic. Normocephalic. EYES: Pupils equal and round. No scleral icterus. No injection or drainage. ENT: Mucous membranes pink and moist. NECK: Trachea midline. No JVD. No nuchal rigidity. CARDIOVASCULAR: Regular rate and rhythm. No murmur appreciated. Distal pulses brisk and equal bilaterally. RESPIRATORY: No accessory muscle use. Clear to auscultation. Breath sounds equal bilaterally. GASTROINTESTINAL: Abdomen soft, non-tender, nondistended. MUSCULOSKELETAL: No obvious deformities. No clubbing. No cyanosis. No edema. Mild midline lower thoracic spine and superior lumbar spine tenderness without step-off. NEUROLOGICAL: Awake and alert. No obvious cranial nerve deficits. Motor grossly within normal limits. Normal speech. Normal motor/sensory in all 4 extremities with normal strength in all 4 extremities. PSYCHIATRIC: Appropriate mood and affect; insight and judgment normal. Data Data Last Documented VS Vital Signs Date Time Temp Pulse Resp B/P (MAP) Pulse Ox O2 Delivery O2 Flow Rate FiO2 07/07/17 22:27 99.8 72 18 137/65 (89) 98 Room Air Orders Orders Complete Blood Count With Diff (07/07/17 22:43) Comprehensive Metabolic Panel (07/07/17 22:43) Prothrombin Time / Inr (Pt) (07/07/17 22:43) Act Partial Throm Time (Ptt) (07/07/17 22:43) Iv Access Insert/Monitor (07/07/17 22:43) Ecg Monitoring (07/07/17 22:43) Oximetry (07/07/17 22:43) Sodium Chloride 0.9% Flush (Ns Flush) (07/07/17 22:45) Westergren Sedimentation Rate (07/07/17 22:43) Urinalysis - C+S If Indicated (07/07/17 22:43) Blood Culture (07/07/17 22:43) Chest, Single Ap (07/07/17 ) Influenzae A/B Antigen (07/07/17 22:46) Mri L Spine W&W/O Contrast (07/07/17 ) Mri T Spine W & W/O Contrast (07/07/17 ) Mri C Spine W&W/O Contrast (07/07/17 ) Acetaminophen (Tylenol) (07/07/17 23:00) Urine Culture (07/07/17 22:40) Vancomycin Inj (Vancomycin Inj) (07/07/17 23:15) Piperacil-Tazo 4.5 Gm Premix (Zosyn 4.5 (07/07/17 23:15) Admit Order (Ed Use Only) (07/07/17 23:51) Labs Laboratory Tests Test 07/07/17 22:40 White Blood Count 9.9 TH/MM3 Red Blood Count 4.72 MIL/MM3 Hemoglobin 12.6 GM/DL Hematocrit 38.0 % Mean Corpuscular Volume 80.5 FL Mean Corpuscular Hemoglobin 26.6 PG Mean Corpuscular Hemoglobin Concent 33.1 % Red Cell Distribution Width 14.6 % Platelet Count 166 TH/MM3 Mean Platelet Volume 8.9 FL Neutrophils (%) (Auto) 81.1 % Lymphocytes (%) (Auto) 13.6 % Monocytes (%) (Auto) 4.6 % Eosinophils (%) (Auto) 0.2 % Basophils (%) (Auto) 0.5 % Neutrophils # (Auto) 8.1 TH/MM3 Lymphocytes # (Auto) 1.3 TH/MM3 Monocytes # (Auto) 0.5 TH/MM3 Eosinophils # (Auto) 0.0 TH/MM3 Basophils # (Auto) 0.0 TH/MM3 CBC Comment DIFF FINAL Differential Comment Erythrocyte Sedimentation Rate 12 mm/hr Prothrombin Time 11.5 SEC Prothromb Time International Ratio 1.0 RATIO Activated Partial Thromboplast Time 30.4 SEC Urine Color YELLOW Urine Turbidity HAZY Urine pH 6.0 Urine Specific [place] 1.014 Urine Protein 30 mg/dL Urine Glucose (UA) 1000 mg/dL Urine Ketones NEG mg/dL Urine Occult Blood TRACE Urine Nitrite NEG Urine Bilirubin NEG Urine Urobilinogen LESS THAN 2.0 MG/DL Urine Leukocyte Esterase NEG Urine RBC 9 /hpf Urine WBC 36 /hpf Urine Squamous Epithelial Cells 1 /hpf Urine Amorphous Sediment RARE Urine Bacteria OCC /hpf Urine Hyaline Casts 10 /lpf Urine Mucus FEW /lpf Microscopic Urinalysis Comment CULTURE INDICATED Blood Urea Nitrogen 12 MG/DL Creatinine 0.73 MG/DL Random Glucose 122 MG/DL Total Protein 6.5 GM/DL Albumin 3.1 GM/DL Calcium Level 7.6 MG/DL Alkaline Phosphatase 80 U/L Aspartate Amino Transf (AST/SGOT) 38 U/L Alanine Aminotransferase (ALT/SGPT) 50 U/L Total Bilirubin 0.2 MG/DL Sodium Level 137 MEQ/L Potassium Level 4.3 MEQ/L Chloride Level 102 MEQ/L Carbon Dioxide Level 28.6 MEQ/L Anion Gap 6 MEQ/L Estimat Glomerular Filtration Rate 125 ML/MIN [facility] Medical Decision Making Medical Screen Exam Complete: Yes Emergency Medical Condition: Yes Differential Diagnosis Unintentional opioid overdose, sepsis, bacteremia, epidural abscess, influenza, metabolic abnormality Narrative Course Initial vital signs show heart rate 90, blood pressure 120/55, pulse ox 96% on room air, oral temp of 98.6F. Repeat vital signs show an oral temp of 99.8F, heart rate 72, blood pressure 132/65, pulse ox 98% on room air. CBC: WBC 9.9, hemoglobin 12.6, hematocrit 38, platelets 166, neutrophils 81.1%. CMP is remarkable for calcium 7.6, iodine and 3.1, otherwise unremarkable. UA: Hazy urine, 30 protein, 1000 glucose, trace occult blood, 9 RBCs, 36 WBCs, occasional bacteria, few mucus. ESR is 12. Chest x-ray: Normal exam. This is a 31-year-old male with history of IVDU who has a fever. He unintentionally overdosed on heroin today, and therefore his girlfriend called 911. He was never administered Narcan. Although the patient is awake and alert , he does not appear well to me. He has no nuchal rigidity on exam. He is complaining of mid and lower back pain which has been going on for last 2 weeks. He is also shivering, complaining of chills. There are no focal deficits or extremity weakness on exam. He has a temp of 99.8F. Although his white blood cell count is normal, he has 81% neutrophils on differential. MRI of his entire spine has been ordered to rule out osteomyelitis and epidural abscess, however, unfortunately the MRI machine is currently down and out of service. Apparently it will be back in service in the morning. Patient was empirically started on vancomycin and Zosyn. He will be admitted for further antibiotic treatment and to rule out osteomyelitis/epidural abscess/bacteremia. Case discussed with hospitalist Dr. Rhodes who will admit the patient to her service. Diagnosis Primary Impression: Fever Qualified Codes: R50.9 - Fever, unspecified Additional Impressions: SIRS (systemic inflammatory response syndrome) IV drug abuse rule out epidral abscess/diskitis/bacteremia Admitting Information Admitting Physician Requests: Observation Scripts No Active Prescriptions or Reported Meds Mayo Arias MD Jul 07, 2017 22:55
[2017-07-07 23:00] LABS: AUTOMATED NEUTROPHIL # 8.1 TH/MM3 (1.8-7.7); BASOPHIL % 0.5 % (0.0-2.0); EOSINOPHIL % 0.2 % (0.0-4.0); HEMO FLAGS DIFF FINAL; LYMPH % 13.6 % (9.0-44.0); LYMPHOCYTE # 1.3 TH/MM3 (1.0-4.8); MEAN CELL VOLUME 80.5 FL (80.0-100.0); MEAN CORPUSCULAR HEMOGLOBIN 26.6 PG (27.0-34.0); MEAN CORPUSCULAR HGB CONC 33.1 % (32.0-36.0); MONO % 4.6 % (0.0-8.0); NEUT % 81.1 % (16.0-70.0); PLATELET COUNT 166 TH/MM3 (150-450); RED BLOOD COUNT 4.72 MIL/MM3 (4.50-5.90); RED CELL DISTRIBUTION WIDTH 14.6 % (11.6-17.2); WHITE BLOOD COUNT 9.9 TH/MM3 (4.0-11.0)
[2017-07-07] MEDS ORDERED: ACETAMINOPHEN 325 MG TAB PO ONE (23:00)
[2017-07-07 23:03] LABS: BACTERIA, URINE OCC /hpf; BLOOD, URINE TRACE (NEG); COMMENT (UR) CULTURE INDICATED; CULTURE IF INDICATED CULTURE INDICATED; GLUCOSE,URINE 1000 mg/dL (NEG); HYALINE CAST, URINE 10 /lpf (RARE); KETONE, URINE NEG (NEG); MUCUS URINE FEW /lpf (OCC); NITRITE,URINE NEG (NEG); SQUAMOUS EPITHELIAL CELL URINE 1 /hpf (0-5); URINE COLOR YELLOW (YELLW/STRAW)
--- NOTE | 2017-07-07 23:07 | RADRPT ---
EXAM DATE/TIME: 07/07/2017 22:54 [facility] COMPARISON: No previous studies available for comparison. INDICATIONS : Cough. MEDICAL HISTORY : None. SURGICAL HISTORY : None. ENCOUNTER: Initial ACUITY: 1 day PAIN SCORE: 0/10 LOCATION: Bilateral chest FINDINGS: A single view of the chest demonstrates the lungs to be symmetrically aerated without evidence of mas s, infiltrate or effusion. The cardiomediastinal contours are unremarkable. Osseous structures are intact. CONCLUSION: Normal examination. Mariano Hoffman MD on July 07, 2017 at 23:06 Board Certified Radiologist. This report was verified electronically.
[2017-07-07] MEDS ORDERED: VANCOMYCIN INJ 1,000 MG in SODIUM CHLOR 0.9% 250 ML INJ 250 ML IV ONE (23:15)
[2017-07-07] MEDS ORDERED: PIPERACIL-TAZO 4.5 GM PREMIX 100 ML IV ONE (23:15)
[2017-07-07 23:17] LABS: ALT (GPT) 50 U/L (12-78); ANION GAP 6 MEQ/L (5-15); AST (GOT) 38 U/L (15-37); BICARBONATE 28.6 MEQ/L (21.0-32.0); BLOOD UREA NITROGEN 12 MG/DL (7-18); CHLORIDE 102 MEQ/L (98-107); GLOMERULAR FILTRATION RATE 125 ML/MIN (>89); POTASSIUM 4.3 MEQ/L (3.5-5.1); SODIUM (NA) 137 MEQ/L (136-145)
[2017-07-07 23:19] LABS: ALKALINE PHOSPHATASE 80 U/L (45-117); TOTAL BILIRUBIN ADULT 0.2 MG/DL (0.2-1.0)
[2017-07-07 23:23] LABS: APTT (PATIENT) 30.4 SEC (24.3-30.1); PROTHROMBIN TIME - PATIENT 11.5 SEC (9.8-11.6)
[2017-07-07] MEDS ORDERED: Vancomycin Consult Pharmacy 1 EA OTHER SCH (23:45)
[2017-07-08] VITALS (7 sets, daily range): BP systolic 111–138; BP diastolic 56–78; PULSE 55–78; RESP 16–24; TEMP 96–98.1; O2SAT 97–100
--- NOTE | 2017-07-08 00:09 | HHI.HP ---
HPI [facility] Primary [facility] Physician Unknown Admission Diagnosis IV drug abuse with fever, r/o bacteremia/epidural abscess Diagnoses: Travel History International Travel<30 Days: No Contact w/Intl Traveler <30 Da: No Traveled to Known Affected Are: No History of Present Illness 31-year-old male with a past medical history significant for daily IV drug abuse presents to the emergency department after EMS was called for an overdose. The patient's girlfriend called EMS after the patient overdosed on heroin this evening. She reports that she had to give him [id number] resuscitation. When the paramedics arrived, the patient was awake and alert and he did not require any Narcan. The patient reports a 1 day history of severe subjective fever/chills. He is afebrile in the emergency department with stable vital signs. CBC significant only for a left shift. No leukocytosis. UA showed urinary tract infection. Urine culture pending. Blood cultures pending. Patient has significant point tenderness in the thoracic spine. He does not have any lateralizing defects. He denies any weakness. Review of Systems Denies fever or chills Denies blurry vision, otorrhea, rhinorrhea Denies sore throat and cough No chest pain, palpitations, shortness of breath No abdominal pain Denies constipation/diarrhea/nausea/vomiting Denies muscle pain/weakness No rashes Past Family Social History Past Medical History None Past Surgical History ORIF left mandible December 20, 2016 I&D left upper extremity abscess 2016 Reported Medications None Allergies: Coded Allergies: No Known Allergies (Verified , 12/19/16) Family History Both parents healthy Social History Smokes one pack per day 10 years. Denies alcohol. Uses IV heroin daily. Physical Exam Vital Signs Vital Signs Date Time Temp Pulse Resp B/P (MAP) Pulse Ox O2 Delivery O2 Flow Rate FiO2 07/07/17 22:27 99.8 72 18 137/65 (89) 98 Room Air 07/07/17 17:37 98.6 90 16 120/55 (76) 96 Physical Exam GENERAL: male sleeping in bed, arouses to voice SKIN: No rashes, ecchymoses or lesions. Cool and dry. HEAD: Atraumatic. Normocephalic. No temporal or scalp tenderness. EYES: Pupils pinpoint. Extraocular motions intact. No scleral icterus. No injection or drainage. ENT: Nose without bleeding, purulent drainage or septal hematoma. Throat without erythema, tonsillar hypertrophy or exudate. Uvula midline. Airway patent. Poor dentition. NECK: Trachea midline. No JVD or lymphadenopathy. Supple, nontender, no meningeal signs. CARDIOVASCULAR: Regular rate and rhythm without murmurs, gallops, or rubs. RESPIRATORY: Clear to auscultation. Breath sounds equal bilaterally. No wheezes , rales, or rhonchi. GASTROINTESTINAL: Abdomen soft, non-tender, nondistended. No hepato-splenomegaly , or palpable masses. No guarding. MUSCULOSKELETAL: Extremities without clubbing, cyanosis, or edema. No joint tenderness, effusion, or edema noted. No calf tenderness. Point tenderness in the midline thoracic spine. NEUROLOGICAL: Awake and alert. Cranial nerves II through XII intact. Motor and sensory grossly within normal limits. Five out of 5 muscle strength in all muscle groups. Mildly slurred speech. Laboratory Laboratory Tests Test 07/07/17 22:40 White Blood Count 9.9 Red Blood Count 4.72 Hemoglobin 12.6 Hematocrit 38.0 Mean Corpuscular Volume 80.5 Mean Corpuscular Hemoglobin 26.6 Mean Corpuscular Hemoglobin Concent 33.1 Red Cell Distribution Width 14.6 Platelet Count 166 Mean Platelet Volume 8.9 Neutrophils (%) (Auto) 81.1 Lymphocytes (%) (Auto) 13.6 Monocytes (%) (Auto) 4.6 Eosinophils (%) (Auto) 0.2 Basophils (%) (Auto) 0.5 Neutrophils # (Auto) 8.1 Lymphocytes # (Auto) 1.3 Monocytes # (Auto) 0.5 Eosinophils # (Auto) 0.0 Basophils # (Auto) 0.0 CBC Comment DIFF FINAL Differential Comment Erythrocyte Sedimentation Rate 12 Prothrombin Time 11.5 Prothromb Time International Ratio 1.0 Activated Partial Thromboplast Time 30.4 Urine Color YELLOW Urine Turbidity HAZY Urine pH 6.0 Urine Specific [place] 1.014 Urine Protein 30 Urine Glucose (UA) 1000 Urine Ketones NEG Urine Occult Blood TRACE Urine Nitrite NEG Urine Bilirubin NEG Urine Urobilinogen LESS THAN 2.0 Urine Leukocyte Esterase NEG Urine RBC 9 Urine WBC 36 Urine Squamous Epithelial Cells 1 Urine Amorphous Sediment RARE Urine Bacteria OCC Urine Hyaline Casts 10 Urine Mucus FEW Microscopic Urinalysis Comment CULTURE INDICATED Blood Urea Nitrogen 12 Creatinine 0.73 Random Glucose 122 Total Protein 6.5 Albumin 3.1 Calcium Level 7.6 Alkaline Phosphatase 80 Aspartate Amino Transf (AST/SGOT) 38 Alanine Aminotransferase (ALT/SGPT) 50 Total Bilirubin 0.2 Sodium Level 137 Potassium Level 4.3 Chloride Level 102 Carbon Dioxide Level 28.6 Anion Gap 6 Estimat Glomerular Filtration Rate 125 Date/Time Source Procedure Growth Status 07/07/17 22:50 Blood Peripheral Aerobic Blood Culture Pending Received 07/07/17 22:50 Blood Peripheral Anaerobic Blood Culture Pending Received 07/07/17 22:55 Nasal Washing Influenza Types A,B Antigen (EVIN) - Final NEGATIVE FOR FLU A AND B ANTIGEN.... Complete 07/07/17 22:40 Urine Clean Catch Urine Culture Pending Received Result Diagram: 07/07/17223907/07/17 2240 Caprini VTE Risk Assessment Caprini VTE Risk Assessment: No/Low Risk (score <= 1) Caprini Risk Assessment Model Point Value = 1 Point Value = 2 Point Value = 3 Point Value = 5 Age 41-60 Minor surgery BMI > 25 kg/m2 Swollen legs Varicose veins or History of unexplained or recurrent spontaneous Oral contraceptives or hormone replacement Sepsis (< 1 month) Serious lung disease, including pneumonia (< 1 month) Abnormal pulmonary function Acute myocardial infarction Congestive heart failure (< 1 month) History of inflammatory bowel disease Medical patient at bed rest Age 61-74 Arthroscopic surgery Major open surgery (> 45 min) Laparoscopic surgery (> 45 min) Malignancy Confined to bed (> 72 hours) Immobilizing plaster cast Central venous access Age >= 75 History of VTE Family history of VTE Factor V Leiden Prothrombin [id number] Lupus anticoagulant Anticardiolipin antibodies Elevated serum homocysteine Heparin-induced thrombocytopenia Other congenital or acquired thrombophilia Stroke (< 1 month) Elective arthroplasty Hip, pelvis, or leg fracture Acute spinal cord injury (< 1 month) Prophylaxis Regimen Total Risk Factor Score Risk Level Prophylaxis Regimen 0-1 Low Early ambulation 2 Moderate Order ONE of the following: *Sequential Compression Device (SCD) *Heparin 5000 units SQ BID 3-4 Higher Order ONE of the following medications: *Heparin 5000 units SQ TID *Enoxaparin/Lovenox 40 mg SQ daily (WT < 150 kg, CrCl > 30 mL/min) *Enoxaparin/Lovenox 30 mg SQ daily (WT < 150 kg, CrCl > 10-29 mL/min) *Enoxaparin/Lovenox 30 mg SQ BID (WT < 150 kg, CrCl > 30 mL/min) AND/OR *Sequential Compression Device (SCD) 5 or more Highest Order ONE of the following medications: *Heparin 5000 units SQ TID (Preferred with Epidurals) *Enoxaparin/Lovenox 40 mg SQ daily (WT < 150 kg, CrCl > 30 mL/min) *Enoxaparin/Lovenox 30 mg SQ daily (WT < 150 kg, CrCl > 10-29 mL/min) *Enoxaparin/Lovenox 30 mg SQ BID (WT < 150 kg, CrCl > 30 mL/min) AND *Sequential Compression Device (SCD) Assessment and Plan Assessment and Plan 31-year-old male IV drug abuser presents after EMS was called for an overdose. The patient does not require any Narcan. On evaluation, he has a history of fever/chills and thoracic spine point tenderness with concern for an epidural abscess. 1. IV drug abuse/Overdose/Concern for epidural abscess MRI of the spine pending Vancomycin and Zosyn until the results of MRI Blood cultures pending Anticipate d/c in am if MRI wnl 2. Urinary tract infection Antibiotics as above Urine culture pending FEN: Heart healthy diet Electrolytes wnl Lovenox Gissel Rhodes MD Jul 08, 2017 00:09
[2017-07-08] MEDS ORDERED: SENNOSIDES 8.6 MG TAB PO PRN (00:15)
[2017-07-08] MEDS ORDERED: NALOXONE HCL 0.4 MG/ML AMP IV PUSH PRN (00:15)
[2017-07-08] MEDS ORDERED: ONDANSETRON HCL 4 MG/2 ML VIAL IVP PRN (00:15)
[2017-07-08] MEDS ORDERED: MAGNESIUM HYDROXIDE SUSP 30 ML CUP PO PRN (00:15)
[2017-07-08] MEDS ORDERED: BISACODYL 10 MG SUPP RECTAL PRN (00:15)
[2017-07-08] MEDS ORDERED: LACTULOSE SYRUP 20 GM/30 ML CUP PO PRN (00:15)
[2017-07-08] MEDS ORDERED: ACETAMINOPHEN 325 MG TAB PO PRN (00:15)
[2017-07-08] MEDS ORDERED: SODIUM CHLORIDE 0.9% FLUSH 10 ML FLUSH IV FLUSH PRN (00:15)
[2017-07-08 05:10] LABS: BASOPHIL # 0.1 TH/MM3 (0-0.2); BASOPHIL % 1.1 % (0.0-2.0); EOSINOPHIL # 0.1 TH/MM3 (0-0.4); EOSINOPHIL % 1.3 % (0.0-4.0); HEMATOCRIT 37.3 % (39.0-51.0); HEMO FLAGS DIFF FINAL; LYMPH % 26.7 % (9.0-44.0); LYMPHOCYTE # 1.7 TH/MM3 (1.0-4.8); MEAN CELL VOLUME 80.2 FL (80.0-100.0); MEAN CORPUSCULAR HEMOGLOBIN 26.8 PG (27.0-34.0); MEAN CORPUSCULAR HGB CONC 33.4 % (32.0-36.0); MONO % 8.6 % (0.0-8.0); NEUT % 62.3 % (16.0-70.0); PLATELET COUNT 177 TH/MM3 (150-450); RED BLOOD COUNT 4.65 MIL/MM3 (4.50-5.90); RED CELL DISTRIBUTION WIDTH 14.3 % (11.6-17.2); WHITE BLOOD COUNT 6.5 TH/MM3 (4.0-11.0)
[2017-07-08 05:34] LABS: BICARBONATE 28.5 MEQ/L (21.0-32.0); POTASSIUM 3.7 MEQ/L (3.5-5.1)
[2017-07-08] MEDS: PIPERACIL-TAZO 3.375 GM PREMIX 50 ML IV SCH ×2 (05:45→11:07)
[2017-07-08] MEDS ORDERED: DOCUSATE SODIUM 50 MG/SENNA 8.6 MG TAB PO SCH (09:00)
[2017-07-08] MEDS ORDERED: SODIUM CHLORIDE 0.9% FLUSH 10 ML FLUSH IV FLUSH SCH (09:00)
--- NOTE | 2017-07-08 09:25 | RADRPT ---
EXAM DATE/TIME: 07/08/2017 08:38 [facility] COMPARISON: No previous studies available for comparison. INDICATIONS : Abscess. Patient refused intravenous gadolinium. MEDICAL HISTORY : None. SURGICAL HISTORY : Exploratory surgery abd. ENCOUNTER: Initial ACUITY: 1 day PAIN SCORE: 0/10 LOCATION: neck TECHNIQUE: Multiplanar, multisequence MRI examination of the cervical spine was performed. FINDINGS: VERTEBRAE: Normal vertebral body height. Homogeneous marrow signal. ALIGNMENT: No evidence of subluxation. CORD: Normal configuration and signal. POST FOSSA: The cerebellar tonsils are normal in position. C2-C3: The thecal sac has a normal configuration. There is no evidence of disc herniation or spinal canal s tenosis. The neural foramina are patent bilaterally. C3-C4: The thecal sac has a normal configuration. There is no evidence of disc herniation or spinal canal s tenosis. The neural foramina are patent bilaterally. C4-C5: The thecal sac has a normal configuration. There is no evidence of disc herniation or spinal canal s tenosis. The neural foramina are patent bilaterally. C5-C6: Minimal interspace ridging is present without significant spinal stenosis. C6-C7: The thecal sac has a normal configuration. There is no evidence of disc herniation or spinal canal s tenosis. The neural foramina are patent bilaterally. C7-T1: The thecal sac has a normal configuration. There is no evidence of disc herniation or spinal canal s tenosis. The neural foramina are patent bilaterally. CONCLUSION: No obvious abscess. Lack of contrast makes detection of subtle inflammatory process is difficult. Patient refused further scanning. Flahs Calhoun MD FACR on July 08, 2017 at 9:22 Board Certified Radiologist. This report was verified electronically.
[2017-07-08] MEDS ORDERED: VANCOMYCIN INJ 1,000 MG in SODIUM CHLOR 0.9% 250 ML INJ 250 ML IV SCH (10:00)
[2017-07-08] MEDS ORDERED: LORazepam 2 MG/ML VIAL IV PUSH ONE (11:15)
--- NOTE | 2017-07-08 11:36 | HHI.DCPOC ---
Discharge Care Plan Diagnosis: (1) IV drug abuse (2) Thoracic spine pain (3) Urinary tract infection Goals to Promote Your Health * To prevent worsening of your condition and complications * To maintain your health at the optimal level Directions to Meet Your Goals Strongly advised on completing MRI of the spine to rule out possible infection but patient adamantly refused - strongly recommend you follow up with primary care physician to complete study. Please stop using any illicit drugs especially IV drugs/Heroin Please stop smoking Take your medications as prescribed Follow your dietary instruction Follow activity as directed Keep your appointments as scheduled Take your immunizations and boosters as scheduled If your symptoms worsen call your PCP, if no PCP go to Urgent Care Center or Emergency Room Smoking is Dangerous to Your Health. Avoid second hand smoke Call the 24-hour hour crisis hotline for domestic abuse at Tavia Cheung Jul 08, 2017 11:36
[2017-07-08] MEDS ORDERED: BACT800T5 PO (11:46)
--- NOTE | 2017-07-08 12:36 | HHI.PR ---
Subjective Remarks Follow-up heroin overdose. States he wants to go home and does not want further scanning. Denies fever or chills. No neck or back pain. Discussed with RN Objective Vitals Vital Signs Date Time Temp Pulse Resp B/P (MAP) Pulse Ox O2 Delivery O2 Flow Rate FiO2 07/08/17 11:28 96.3 78 24 129/73 (91) 98 07/08/17 10:00 68 07/08/17 08:04 96.0 55 24 120/78 (92) 100 07/08/17 03:41 98.1 67 18 129/78 (95) 97 07/08/17 01:56 98.0 67 18 138/69 (92) 97 07/08/17 00:31 98 Room Air 07/08/17 00:29 68 16 111/56 (74) 98 Room Air 07/07/17 22:27 99.8 72 18 137/65 (89) 98 Room Air 07/07/17 17:37 98.6 90 16 120/55 (76) 96 I/O 07/07/17 07/07/17 07/07/17 07/08/17 07/08/17 07/08/17 07:00 15:00 23:00 07:00 15:00 23:00 Intake Total 350 ml 250 ml Output Total 300 ml Balance 50 ml 250 ml Intake IV Total 350 ml 250 ml Output Urine Total 300 ml # Voids 1 Result Diagram: 07/08/17 0455 07/08/17 0455 Imaging Last Impressions Cervical Spine MRI 07/08/17 0000 Signed Impressions: Service Date/Time: Saturday, July 08, 2017 08:38 - CONCLUSION: No obvious abscess. Lack of contrast makes detection of subtle inflammatory process is difficult. Patient refused further scanning. Flash Calhoun MD FACR Chest X-Ray 07/07/17 0000 Signed Impressions: Service Date/Time: Friday, July 07, 2017 22:54 - CONCLUSION: Normal examination. Mariano Hoffman MD Objective Remarks GENERAL: male well-developed and well-nourished SKIN: No rashes, ecchymoses or lesions. Cool and dry. HEAD: Atraumatic. Normocephalic. No temporal or scalp tenderness. EYES: Pupils pinpoint. Extraocular motions intact. No scleral icterus. No injection or drainage. ENT: Nose without bleeding, purulent drainage or septal hematoma. Throat without erythema, tonsillar hypertrophy or exudate. Uvula midline. Airway patent. Poor dentition. NECK: Trachea midline. No JVD or lymphadenopathy. Supple, nontender, no meningeal signs. CARDIOVASCULAR: Regular rate and rhythm without murmurs, gallops, or rubs. RESPIRATORY: Clear to auscultation. Breath sounds equal bilaterally. No wheezes , rales, or rhonchi. GASTROINTESTINAL: Abdomen soft, non-tender, nondistended. No guarding. MUSCULOSKELETAL: Extremities without clubbing, cyanosis, or edema. No calf tenderness. Point tenderness in the midline upper thoracic spine. NEUROLOGICAL: Awake and alert. Cranial nerves II through XII intact. Motor and sensory grossly within normal limits. Five out of 5 muscle strength in all muscle groups. Normal speech Procedures None A/P Problem List: (1) Urinary tract infection ICD Code: N39.0 - Urinary tract infection, site not specified (2) Thoracic spine pain ICD Code: M54.6 - Pain in thoracic spine Assessment and Plan 31-year-old male IV drug abuser presents after EMS was called for an overdose. The patient does not require any Narcan. On evaluation, he has a history of fever/chills and thoracic spine point tenderness with concern for an epidural abscess. 1. IV drug abuse/Overdose/Concern for epidural abscess MRI of the C spine negative. Refuses further scanning. ESR within normal limits Vancomycin and Zosyn until the results of MRI Blood cultures pending negative to date 2. Urinary tract infection Antibiotics as above. DC home with Bactrim Urine culture pending 3. Toxic encephalopathy. Resolved patient counseled regarding heroin. FEN: Heart healthy diet Electrolytes wnl Lovenox Patient will be discharged, he refuses further scanning. He has been advised to return to the hospital if he has return of fever, chills and worsening back pain. Discharge Planning Discharge patient to home Condition on discharge: Improved Regular Diet as tolerated Ad Mary activity no driving Rx written: Bactrim Follow-up with primary care physician in one week Problem Qualifiers (1) Urinary tract infection: Qualified Codes: N39.0 - Urinary tract infection, site not specified Kang Zapata MD Jul 08, 2017 12:36
[2017-07-08 16:03] LABS: HEMOGLOBIN A1a 1.3 %; HEMOGLOBIN A1b 1.7 %; HEMOGLOBIN Ao 84.1 %; HEMOGLOBIN LA1C 2.3 %
[2017-07-08] MEDS ORDERED: VANCOMYCIN 1,000 MG/NS 250 ML IV SCH ×2 (18:00)
[2017-07-08] MEDS ORDERED: SULFAMETHOXAZOLE-TRIMETHOPRIM DS 800-160 MG TAB PO SCH (21:00)
[2017-07-09] MEDS ORDERED: PHARMACY ORDERED LAB ONE (09:45)
== END 2017-07-08 12:07 | disposition home or self-care (01) ==
LOC: NEDAMB 17:29 → NEDA 23:52 → NEPHCDU 07-08 01:52
PROVIDERS: ADMIT Internal Medicine; ATTEND Internal Medicine
DX: T40.1X1A Poisoning by heroin, accidental (unintentional), initial encounter (principal); F11.90 Opioid use, unspecified, uncomplicated; N39.0 Urinary tract infection, site not specified; M54.6 Pain in thoracic spine; M54.5 Low back pain; R68.83 Chills (without fever); F17.210 Nicotine dependence, cigarettes, uncomplicated; R50.9 Fever, unspecified; R73.9 Hyperglycemia, unspecified; R79.1 Abnormal coagulation profile; D64.9 Anemia, unspecified
CPT/HCPCS: 71010; 72141; 80048; 80053; 81001; 82948; 83036; 85025; 85610; 85652; 85730; 87040; 87086; 87804; 96365; 96366; 99285; G0378; J2543; J3370; J7050